=== PATIENT | male | born 1955 | race Two or more races ===

== ENCOUNTER 2023-03-04 13:40 | Emergency (ER) | payer BC ==
[~2023-03-04] VITALS: Ht 165.1 cm; Wt 65.8 kg
[2023-03-04] MEDS ORDERED: ACETAMINOPHEN ES 500 MG TABLET PO ONE ×2 (14:30→21:00)
[2023-03-04 14:44] LABS: BASOPHILS # (AUTO) 0.2 K/uL (0.0-0.2); BASOPHILS % (AUTO) 0.8 % (0.0-2.0); EOSINOPHILS % (AUTO) 0.2 % (0.0-6.0); HEMATOCRIT 41 % (39-51); HEMOGLOBIN 13.4 g/dL (13.5-17.5); LYMPHOCYTES # (AUTO) 1.2 K/uL (0.8-4.8); LYMPHOCYTES % (AUTO) 5.3 % (20.0-44.0); MEAN CORPUSCULAR HEMOGLOBIN 31 PG (26.0-33.0); MEAN CORPUSCULAR HGB CONC 33 g/dl (31.0-36.0); MEAN CORPUSCULAR VOLUME 93 fL (80-96); MONOCYTES # (AUTO) 1.8 K/uL (0.1-1.30); MONOCYTES % (AUTO) 8.3 % (2.0-12.0); NEUTROPHILS # (AUTO) 18.9 K/uL (1.8-8.9); NEUTROPHILS % (AUTO) 85.4 % (43.0-81.0); PLATELET COUNT (AUTO) 258 K/uL (150-450); RED BLOOD CELL COUNT(AUTO) 4.38 MIL/uL (4.5-6.0); RED CELL DISTRIBUTION WIDTH 15.2 % (11.5-15.0); WHITE BLOOD COUNT (AUTO) 22.2 K/uL (4.3-11.0)
[2023-03-04] MEDS ORDERED: IV NS 0.9% 1,000 ML BAG IV ONE (15:00)
[2023-03-04] MEDS ORDERED: VANCOMYCIN 1 GM in IV D5W 250 ML IV ONE (15:00)
[2023-03-04] MEDS ORDERED: IV NS 0.9% 1,000 ML IV ONE (15:00)
[2023-03-04] MEDS ORDERED: CEFEPIME 1 GM in IV D5W 50 ML IV ONE (15:00)
[2023-03-04 15:01] LABS: LACTIC ACID 1.9 mmol/L (0.4-2.0)
[2023-03-04 15:02] LABS: INR 1.05 (0.91-1.10); PARTIAL THROMBOPLASTIN TIME 33.5 SEC (24.3-34.3); PROTHROMBIN TIME 11.1 SECS (9.2-11.1)
[2023-03-04 15:07] LABS: ALANINE AMINOTRANSFERASE 21 U/L (12-78); ALBUMIN 2.9 g/dL (3.4-5.0); ALKALINE PHOSPHATASE 73 U/L (46-116); ASPARTATE AMINOTRANSFERASE 20 U/L (15-37); BILIRUBIN,DIRECT 0.1 mg/dL (0.0-0.2); BILIRUBIN,TOTAL 0.5 mg/dL (0.2-1.0); CALCIUM, SERUM 9.2 mg/dL (8.5-10.1); CARBON DIOXIDE 26 mmol/L (21-32); CHLORIDE 97 mmol/L (98-107); CREATININE 1.4 mg/dL (0.6-1.3); GLUCOSE 151 mg/dL (74-106); POTASSIUM 3.9 mmol/L (3.5-5.1); SODIUM SERUM 134 mmol/L (136-145); TOTAL PROTEIN, SERUM 9.1 g/dL (6.4-8.2); UREA NITROGEN, BLOOD 21 mg/dL (7-18)
[2023-03-04] MEDS ORDERED: NEOM10DR11 EACH EAR (15:15)
[2023-03-04] MEDS ORDERED: PETR113O TP (15:15)
[2023-03-04] MEDS ORDERED: MULT-447 PO (15:15)
[2023-03-04] MEDS ORDERED: SULF1TAB48 PO (15:15)
[2023-03-04] MEDS ORDERED: ATOR40TA PO (15:15)
[2023-03-04] MEDS ORDERED: QUET25TA PO (15:15)
[2023-03-04] MEDS ORDERED: NYST15CR2 TP (15:15)
[2023-03-04] MEDS ORDERED: ACET-907 PO (15:15)
[2023-03-04] MEDS ORDERED: ACET-868 PO (15:15)
[2023-03-04] MEDS ORDERED: CRAN3875 PO (15:15)
[2023-03-04] MEDS ORDERED: TAMS-12 PO (15:15)
[2023-03-04] MEDS ORDERED: NA P133E RC (15:15)
[2023-03-04] MEDS ORDERED: SENN-261 PO (15:15)
[2023-03-04] MEDS ORDERED: ATEN50TA PO (15:15)
[2023-03-04] MEDS ORDERED: GABA-532 PO (15:15)
[2023-03-04] MEDS ORDERED: MAGN400O6 PO (15:15)
[2023-03-04] MEDS ORDERED: DOCU-141 PO (15:15)
[2023-03-04] MEDS ORDERED: ACET-2605 PO (15:15)
[2023-03-04] MEDS ORDERED: DIVA125C5 PO (15:15)
[2023-03-04] MEDS ORDERED: ACETAMINOPHEN 650 MG/SUPP.RECT RC ONE ×3 (15:30→20:30)
[2023-03-04 15:49] LABS: BAND % (MANUAL) 1 % (0.0-5.0); LYMPHOCYTES % (MANUAL) 5 % (16-48); MONOCYTES % (MANUAL) 7 % (0-11.0); NEUTROPHILS % (MANUAL) 87 (42-76); PLATELET ESTIMATE ADEQUATE
[2023-03-04] MEDS ORDERED: IOHEXOL-300 100 ML VIAL IV ONE (16:09)
[2023-03-04] MEDS ORDERED: IV NS 0.9% 250 ML IV ONE (16:10)
[2023-03-04] MEDS ORDERED: CT SWABBABLE VALVE TRANS SET 1 EA INFUS.SET MC ONE (16:10)
[2023-03-04] MEDS ORDERED: ONDANSETRON HCL/PF 4 MG/2 ML VIAL IV PRN (16:30)
[2023-03-04] MEDS ORDERED: LORAZEPAM INJ 2 MG/ML VIAL IV PRN (16:30)
[2023-03-04] MEDS ORDERED: MAGNESIUM HYDROXIDE 30 ML UDC PO PRN (16:30)
[2023-03-04] MEDS ORDERED: ACETAMINOPHEN ES 500 MG TABLET PO PRN (16:30)
[2023-03-04] MEDS ORDERED: DIVALPROEX SODIUM 125 MG CAP.SPRINK PO SCH (17:00)
[2023-03-04] MEDS ORDERED: DOCUSATE SODIUM 100 MG CAPSULE PO SCH (17:00)
[2023-03-04] MEDS ORDERED: QUETIAPINE FUMARATE 25 MG TABLET PO SCH (17:00)
[2023-03-04] MEDS ORDERED: GABAPENTIN 100 MG CAPSULE PO SCH (17:00)
[2023-03-04 17:08] LABS: APPEARANCE,URINE CLEAR (CLEAR); BILIRUBIN,URINE NEGATIVE (NEGATIVE); BLOOD, URINE 3+ Ery/uL (NEGATIVE); COLOR,URINE YELLOW (YELLOW); KETONES,URINE 1+ mg/dL (NEGATIVE); LEUKOCYTE ESTERASE ,URINE NEGATIVE (NEGATIVE); NITRITE, URINE NEGATIVE (NEGATIVE); PROTEIN,URINE 3+ mg/dl (NEGATIVE); UGLUCOSE NEGATIVE (NEGATIVE); UROBILINOGEN,URINE 0.2 EU/dL (0.2)
[2023-03-04 17:24] LABS: ADD URINE CULTURE YES; BACTERIA,URINE 2+ /HPF (None Seen); MUCUS,URINE Many /LPF (None Seen); RBC,URINE 21-50 /HPF (0-2); WBC,URINE NONE SEEN /HPF (0-3)
[2023-03-04] MEDS ORDERED: TAMSULOSIN 0.4 MG CAP.SR.24H PO SCH (18:00)
[2023-03-04] MEDS ORDERED: ACETAMINOPHEN ES 500 MG TABLET ONE (20:25)
[2023-03-04] MEDS ORDERED: ATORVASTATIN 40 MG TABLET PO SCH (22:00)
[2023-03-04] MEDS ORDERED: SENNOSIDES 8.6 MG TABLET PO SCH (22:00)
[2023-03-04] MEDS ORDERED: MORPHINE SULFATE INJ 2 MG/ML DISP.SYRIN ONE (23:47)
[2023-03-05] MEDS ORDERED: MORPHINE SULFATE INJ 2 MG/ML DISP.SYRIN IV ONE
[2023-03-05 02:38] VITALS: BP 137/64; TEMP 99.9; O2SAT 97
[2023-03-05] MEDS ORDERED: CEFEPIME 1 GM in IV D5W 50 ML IV SCH (03:00)
[2023-03-05] MEDS ORDERED: ATENOLOL 50 MG TABLET PO SCH (09:00)
[2023-03-05] MEDS ORDERED: VANCOMYCIN 1.25 GM in IV D5W 250 ML IV SCH (15:00)
== END 2023-03-05 02:38 | disposition short-term general hospital (02) ==
LOC: ER 14:30
DX: A41.9 Sepsis, unspecified organism (principal); H66.43 Suppurative otitis media, unspecified, bilateral; F20.9 Schizophrenia, unspecified; Z79.899 Other long term (current) drug therapy; Z20.822 Contact with and (suspected) exposure to COVID-19
CPT/HCPCS: 99291; 96365; 70460; 71045; 96366; 96375; 87426; 96368; 93005; 87804 ×2; 84145; 85025; 80048; 87040 ×2; 87086; 83605; 80076; 81001; 36415; 84484; 85730; 85007; J3370; J7060; J7030; J7050; J2270; J0692; Q9967; C9803; A4223

== ENCOUNTER → 2023-04-24 | Emergency (ER) | payer BC ==
[~2023-04-24] VITALS: Ht 162.6 cm; Wt 49.0 kg
[~2023-04-24] MED LIST: ACET-2605 PO; ACET-868 PO; ACET-907 PO; ATEN50TA PO; ATOR40TA PO; BISA10SU11 RC; CEFEPIME 1 GM in IV D5W 50 ML IV ONE; CRAN3875 PO; DIVA125C5 PO; DOCU-141 PO; FINA5TAB4 PO; GABA-532 PO; IOHEXOL-350 100 ML VIAL IV ONE; IV NS 0.9% 250 ML IV ONE; MAGN400O6 PO; MEGE400O4 PO; MIRT-90 PO; MULT-447 PO; MVI,5VIA2 IV; NA P133E RC; NEOM10DR11 EACH EAR; NYST15CR2 TP; PETR113O TP; POTASSIUM CL. PREMIX PERIPHER. 200 ML ONE; QUET25TA PO; SENN-261 PO; SODIUM CHLORIDE 0.9% IV; SULF1TAB48 PO; TAMS-12 PO; VANCOMYCIN 1 GM in IV D5W 250 ML IV ONE
[2023-04-24 13:20] VITALS: TEMP 97.9
[2023-04-24 13:51] LABS: BASOPHILS % (AUTO) 0.1 % (0.0-2.0); HEMATOCRIT 39 % (39-51); HEMOGLOBIN 12.8 g/dL (13.5-17.5); LYMPHOCYTES # (AUTO) 0.8 K/uL (0.8-4.8); LYMPHOCYTES % (AUTO) 3.8 % (20.0-44.0); MEAN CORPUSCULAR HEMOGLOBIN 30 PG (26.0-33.0); MEAN CORPUSCULAR HGB CONC 33 g/dl (31.0-36.0); MEAN CORPUSCULAR VOLUME 90 fL (80-96); MONOCYTES # (AUTO) 1.3 K/uL (0.1-1.30); MONOCYTES % (AUTO) 6.6 % (2.0-12.0); NEUTROPHILS # (AUTO) 18.2 K/uL (1.8-8.9); NEUTROPHILS % (AUTO) 89.5 % (43.0-81.0); PLATELET COUNT (AUTO) 197 K/uL (150-450); RED BLOOD CELL COUNT(AUTO) 4.28 MIL/uL (4.5-6.0); RED CELL DISTRIBUTION WIDTH 15.9 % (11.5-15.0); WHITE BLOOD COUNT (AUTO) 20.3 K/uL (4.3-11.0)
[2023-04-24 13:55] LABS: CALCIUM, SERUM 8.6 mg/dL (8.5-10.1); CARBON DIOXIDE 20 mmol/L (21-32); CHLORIDE 93 mmol/L (98-107); CREATININE 0.9 mg/dL (0.6-1.3); GLUCOSE 200 mg/dL (74-106); SODIUM SERUM 132 mmol/L (136-145); UREA NITROGEN, BLOOD 5 mg/dL (7-18)
[2023-04-24 13:56] LABS: POTASSIUM 2.1 mmol/L (3.5-5.1)
[2023-04-24 14:02] LABS: INR 1.25 (0.91-1.10); PARTIAL THROMBOPLASTIN TIME 31.3 SEC (24.3-34.3); PROTHROMBIN TIME 13.1 SECS (9.2-11.1)
[2023-04-24 15:00] VITALS: BP 133/84; O2SAT 94
[2023-04-24 15:17] LABS: APPEARANCE,URINE CLOUDY (CLEAR); BILIRUBIN,URINE NEGATIVE (NEGATIVE); BLOOD, URINE 2+ Ery/uL (NEGATIVE); COLOR,URINE YELLOW (YELLOW); KETONES,URINE 3+ mg/dL (NEGATIVE); LEUKOCYTE ESTERASE ,URINE NEGATIVE (NEGATIVE); NITRITE, URINE POSITIVE (NEGATIVE); PH,URINE 6.5 (5.0-8.0); PROTEIN,URINE 2+ mg/dl (NEGATIVE); UGLUCOSE NEGATIVE (NEGATIVE); UROBILINOGEN,URINE 0.2 EU/dL (0.2)
[2023-04-24] MEDS: POTASSIUM CL. PREMIX PERIPHER. 50 ML IV SCH ×2 (15:25→16:20)
[2023-04-24 15:50] LABS: ADD URINE CULTURE YES; BACTERIA,URINE 1+ /HPF (None Seen); MUCUS,URINE Many /LPF (None Seen); RBC,URINE 21-50 /HPF (0-2); URINE AMORPHOUS URATE Many /HPF (None Seen); WBC,URINE 0-2 /HPF (0-3)
[2023-04-24 15:51] LABS: FINE GRANULAR CASTS,URINE Few /LPF (None Seen)
[2023-04-24 16:03] LABS: LACTIC ACID 2.6 mmol/L (0.4-2.0)
[2023-04-24 17:22] LABS: BAND % (MANUAL) 3 % (0.0-5.0); LYMPHOCYTES % (MANUAL) 3 % (16-48); MONOCYTES % (MANUAL) 7 % (0-11.0); NEUTROPHILS % (MANUAL) 87 (42-76); PLATELET ESTIMATE ADEQUATE
[2023-04-24 17:23] LABS: ANISOCYTOSIS 1+
[2023-04-24 18:46] LABS: LACTIC ACID REFLEX 3.2 mmol/L (0.4-1.9)
[2023-04-24 18:52] LABS: BILIRUBIN,DIRECT 0.3 mg/dL (0.0-0.2); BILIRUBIN,TOTAL 0.8 mg/dL (0.2-1.0)
== END | disposition short-term general hospital (02) ==
LOC: ER 13:23
DX: G93.40 Encephalopathy, unspecified (principal); N39.0 Urinary tract infection, site not specified; E87.6 Hypokalemia; I10 Essential (primary) hypertension; I25.2 Old myocardial infarction; K21.9 Gastro-esophageal reflux disease without esophagitis; F20.9 Schizophrenia, unspecified; Z87.440 Personal history of urinary (tract) infections; Z79.899 Other long term (current) drug therapy
CPT/HCPCS: 99291; 70498; 96365; 71045; 96367; 96368; 93005; 70496; 82247; 82248; 84145; 85025; 80048; 87040 ×2; 87086; 83605 ×2; 81001; 36415; 84484; 85730; 70450; 85007; J3370; J7060; J7050; J3480; A4223; J0692; Q9967